=== PATIENT | female | born 1990 | race Caucasian/White ===

== ENCOUNTER 2017-05-18 19:41 | Emergency (ER) | payer BC ==
[~2017-05-18] VITALS: Ht 162.6 cm; Wt 78.6 kg
[2017-05-18 20:29] LABS: HEMATOCRIT 38.4 % (36.0-46.0); HEMOGLOBIN 13.8 G/DL (11.9-15.5); MCH 31.2 PG (29.0-34.0); MCHC 35.9 G/DL (30.0-36.0); MCV 86.9 FL (83-99); PLATELET COUNT 257 K/uL (156-360); RBC DIS.WIDTH-CV 11.9 % (11.8-14.6); RBC DIS.WIDTH-SD 37.9 % (39-53); RED BLOOD COUNT 4.42 M/uL (3.80-5.20); WHITE BLOOD COUNT 8.9 K/uL (4.1-10.2)
[2017-05-18 20:39] LABS: CHLORIDE 106 mEq/L (99-109); POTASSIUM 3.7 mEq/L (3.7-5.4); SODIUM 140 mEq/L (136-147)
[2017-05-18 20:40] LABS: GLUCOSE 86 mg/dL (70-99)
[2017-05-18 20:43] LABS: D-DIMER ELISA < 150.00 ng/mLDDU (<230)
[2017-05-18 20:44] LABS: CREATININE 0.8 mg/dL (0.6-1.3); GFR ESTIMATE (CALCULATED) > 59 mL/min/
[2017-05-18 20:45] LABS: UREA NITROGEN (BUN) 9 mg/dL (9-23)
[2017-05-18 20:51] LABS: TROP-I INTERPRETATION NEGATIVE; TROPONIN-I < 0.01 ng/mL (0.0-0.30)
[2017-05-19] MEDS ORDERED: ZITHROMAX250 MG PO (00:25)
[2017-05-19 00:36] VITALS: BP 119/83
== END 2017-05-19 00:41 | disposition home or self-care (01) ==
LOC: EME 19:41
PROVIDERS: Physician Assistant Medical
DX: J18.9 Pneumonia, unspecified organism (principal)
CPT/HCPCS: 71046; 71275; 80048; 84484; 85027; 85379; 93005; 99281; 99285; J7030